=== PATIENT | male | born 1950 | race African-American/Black ===

== ENCOUNTER 2017-01-13 07:46 | Day surgery (SDC) | payer OTHER ==
[2017-01-11 15:14] LABS: BASOPHILS 0.3 %; BASOPHILS ABSOLUTE 0.01 10/3/uL (0.0-0.16); EOSINOPHILS 2.9 %; HEMOGLOBIN 14.3 g/dL (13.6-17.8); IMMATURE GRANULOCYTES 0.3 %; IMMATURE GRANULOCYTES ABSOLUTE 0.01 10/3/uL (0.0-0.11); LYMPHOCYTES 55.2 %; LYMPHOCYTES ABSOLUTE 1.91 10/3/uL (0.67-4.30); MEAN CORPUS HGB CONC 32.5 g/dL (32.0-36.0); MEAN CORPUSCULAR HEMOGLOB 23.4 pg (26.0-34.0); MEAN PLATELET VOLUME 9.6 fL (9.2-13.0); MONOCYTES ABSOLUTE 0.45 10/3/uL (0.21-1.20); NEUTROPHILS 28.3 %; NEUTROPHILS ABSOLUTE 0.98 10/3/uL (2.02-8.40); PLATELET COUNT 262 10/3/uL (150-400); RBC DISTRIBUTION WIDTH 14.3 % (12.0-16.0); RED CELL COUNT 6.11 10/6/uL (4.7-6.1); WHITE BLOOD CELLS 3.5 10/3/uL (4.5-10.5)
[2017-01-11 15:29] LABS: MANUAL DIFF NO %
[2017-01-11 16:01] LABS: BUN (BLOOD UREA NITROGEN) 14 MG/DL (6-23); CALCIUM, SERUM 8.5 MG/DL (8.5-10.4); CHLORIDE, SERUM 105 MMOL/L (96-112); CO2 (CARBON DIOXIDE) 28 MMOL/L (24-34); CREATININE 1.13 MG/DL (0.70-1.30); GFR AFRICAN AMERICAN 79 ML/MIN (>=60); GFR NON AFRICAN AMERICAN 68 ML/MIN (>=60); GLUCOSE, SERUM 102 MG/DL (60-99); POTASSIUM, SERUM 3.9 MMOL/L (3.5-5.3); SODIUM, SERUM 142 MMOL/L (135-148)
[2017-01-11 16:08] LABS: PLATELET ESTIMATE ADQ (ADEQUATE); RBC MORPHOLOGY NORM (NORMAL)
--- NOTE | ~2017-01-13 | OP ---
Record Of Operation [facility] [address] [place]. [address] NAME: JAIMIE DELGADO : 54 STATUS : [place] [facility] [place] PAT#: [id number] AGE: 66 ADM/REG DATE : 01/13/17 MR#: [id number] REPORT SERV DATE: 01/13/17 DICTATED BY: HEVER SLOAN DATE: 01/13/17 REPORT STATUS : Draft TRANSCRIBED BY: MODL DATE: 01/13/17 DATE OF PROCEDURE: 01/13/2017 PREOPERATIVE DIAGNOSIS: Elevated PSA. POSTOPERATIVE DIAGNOSIS: Elevated PSA. OPERATIVE PROCEDURE: Transrectal ultrasound-guided needle biopsy of the prostate. ANESTHESIA: IV sedation (MAC)-monitored anesthesia care. ESTIMATED BLOOD LOSS: 10 mL. SPECIMENS: Prostate x18 (3 right base, 3 right apex, 3 right mid gland, 3 left base, 3 left apex, 3 left mid gland). IMMEDIATE POSTOP: Satisfactory. COMPLICATIONS: None. DESCRIPTION OF PROCEDURE: The patient was brought into the cysto suite, placed in lateral decubitus position. He was then given intravenous sedation/monitored anesthesia care by the Anesthesia Department. Transrectal ultrasound probe containing needle biopsy guide was then passed by the gi technician. Gland was investigated in both transverse and longitudinal planes. There were no suspicious areas noted. The gland was measured with a length of 7.53 cm, height of 7.18 cm, width 6.58 cm for a volume of 186.26 mL. Then using a disposable biopsy gun under ultrasound guidance, biopsies were obtained throughout the gland in the pattern dictated above. The patient tolerated the procedure well. At the close of the procedure, there was no excess bleeding per rectum, and an absorbable Gelfoam packing was passed per rectum. The patient tolerated the procedure well and at this point was awakened and sent to recovery to phase 2 recovery in satisfactory condition. /CARON Hever Sloan M.D. / [id number] CC: Remberto De La Cruz M.D.
[~2017-01-13 07:46] MED LIST: ADVIL PO; CENTRUM PO; CIALIS5 MG PO; CIP5 PO; SEPTRA DS1 TAB PO; SUPER BETA PROSTATE PO; SYN.15 PO; T PO; TWYNSTA PO
[2017-01-13 10:07] LABS: ALBUMIN 3.9 G/DL (3.5-5.0); ALKALINE PHOSPHATASE 90 U/L (45-117); SGOT(AST) 17 U/L (5-40); SGPT(ALT) 25 U/L (5-65); TOTAL BILIRUBIN 0.3 MG/DL (0-1.2)
[2017-01-13 10:19] LABS: A/G RATIO 1.4 (0.7-1.9); GLOBULIN 2.8 G/DL (2.5-4.1); TOTAL PROTEIN 6.7 G/DL (6.0-8.5)
[2017-03-16] MEDS ORDERED: TWYNSTA PO (13:31)
[2017-03-16] MEDS ORDERED: CARDCD240 PO (14:08)
[2017-03-16] MEDS ORDERED: TOPXL100 PO (14:08)
[2017-03-16] MEDS ORDERED: XARELTO15 MG PO (14:09)
[2017-03-18] MEDS ORDERED: BETAPACE80 PO (14:18)
== END 2017-01-13 12:37 | disposition home or self-care (01) ==
LOC: SDC 07:46
PROVIDERS: Urology
PROC: 0VB04ZX Excision of Prostate, Percutaneous Endoscopic Approach, Diagnostic (ICD-10-PCS; principal; 2017-01-13 09:30)
DX: R97.20 Elevated prostate specific antigen [PSA] (principal); I10 Essential (primary) hypertension; K21.9 Gastro-esophageal reflux disease without esophagitis; E05.00 Thyrotoxicosis with diffuse goiter without thyrotoxic crisis or storm; Z92.3 Personal history of irradiation; Z79.899 Other long term (current) drug therapy
CPT/HCPCS: 71020; 76872; 76942; 80048; 80053; 85025; 88305; 93005; A9270-GY; J2250; J2405; J3010

== ENCOUNTER 2017-02-21 17:22 | Emergency (ER) | payer OTHER ==
[2017-02-21 18:10] LABS: BASOPHILS 0.2 %; BASOPHILS ABSOLUTE 0.01 10/3/uL (0.0-0.16); EOSINOPHILS 0.4 %; EOSINOPHILS ABSOLUTE 0.02 10/3/uL (0.0-0.53); ER CBC TAT 0 Hrs 07 Mins; HEMATOCRIT 48.2 % (40.0-51.0); HEMOGLOBIN 16.2 g/dL (13.6-17.8); IMMATURE GRANULOCYTES 0.4 %; IMMATURE GRANULOCYTES ABSOLUTE 0.02 10/3/uL (0.0-0.11); LYMPHOCYTES 18.9 %; LYMPHOCYTES ABSOLUTE 0.95 10/3/uL (0.67-4.30); MANUAL DIFF NO %; MEAN CORPUS HGB CONC 33.6 g/dL (32.0-36.0); MEAN CORPUSCULAR HEMOGLOB 24.3 pg (26.0-34.0); MEAN CORPUSCULAR VOLUME 72.4 fL (80-100); MEAN PLATELET VOLUME 9.4 fL (9.2-13.0); NEUTROPHILS 74.1 %; NEUTROPHILS ABSOLUTE 3.73 10/3/uL (2.02-8.40); PLATELET COUNT 248 10/3/uL (150-400); RBC DISTRIBUTION WIDTH 14.5 % (12.0-16.0); RED CELL COUNT 6.66 10/6/uL (4.7-6.1)
[2017-02-21 18:21] LABS: INTERNATIONAL NORMAL RATI 1.4 UNITS (-); PARTIAL THROMBO TIME 37.4 SEC (22.5-37.2)
[2017-02-21 18:29] LABS: BUN (BLOOD UREA NITROGEN) 17 MG/DL (6-23); CALCIUM, SERUM 8.4 MG/DL (8.5-10.4); CHEST PAIN PROFILE TAT 0 Hrs 26 Mins; CHLORIDE, SERUM 104 MMOL/L (96-112); CO2 (CARBON DIOXIDE) 24 MMOL/L (24-34); CREATININE 1.26 MG/DL (0.70-1.30); GFR AFRICAN AMERICAN 69 ML/MIN (>=60); GFR NON AFRICAN AMERICAN 60 ML/MIN (>=60); GLUCOSE, SERUM 107 MG/DL (60-99); POTASSIUM, SERUM 3.7 MMOL/L (3.5-5.3); SODIUM, SERUM 139 MMOL/L (135-148); TROPONIN I <0.02 NG/ML (<0.05)
[2017-02-21 18:35] LABS: PLATELET ESTIMATE ADQ (ADEQUATE)
[2017-03-16] MEDS ORDERED: TWYNSTA PO (13:31)
[2017-03-16] MEDS ORDERED: TOPXL100 PO (14:08)
[2017-03-16] MEDS ORDERED: CARDCD240 PO (14:08)
[2017-03-16] MEDS ORDERED: XARELTO15 MG PO (14:09)
[2017-03-18] MEDS ORDERED: BETAPACE80 PO (14:18)
== END 2017-02-21 20:05 | disposition left against medical advice (07) ==
LOC: ER 17:22
PROVIDERS: Emergency Medicine
DX: Z53.21 Procedure and treatment not carried out due to patient leaving prior to being seen by health care provider (principal)
CPT/HCPCS: 80048; 83735; 84484; 85025; 85610; 85730; 93005

== ENCOUNTER 2017-02-23 07:43 | Emergency (ER) | payer OTHER ==
[2017-02-23 06:53] LABS: BASOPHILS 0.2 %; BASOPHILS ABSOLUTE 0.01 10/3/uL (0.0-0.16); EOSINOPHILS 2.2 %; ER CBC TAT 0 Hrs 03 Mins; HEMATOCRIT 46.2 % (40.0-51.0); HEMOGLOBIN 15.6 g/dL (13.6-17.8); IMMATURE GRANULOCYTES 0.7 %; IMMATURE GRANULOCYTES ABSOLUTE 0.03 10/3/uL (0.0-0.11); LYMPHOCYTES ABSOLUTE 1.52 10/3/uL (0.67-4.30); MEAN CORPUS HGB CONC 33.8 g/dL (32.0-36.0); MEAN CORPUSCULAR HEMOGLOB 24.3 pg (26.0-34.0); MEAN CORPUSCULAR VOLUME 72.1 fL (80-100); MEAN PLATELET VOLUME 8.8 fL (9.2-13.0); MONOCYTES 12.6 %; MONOCYTES ABSOLUTE 0.58 10/3/uL (0.21-1.20); NEUTROPHILS 51.3 %; NEUTROPHILS ABSOLUTE 2.37 10/3/uL (2.02-8.40); PLATELET COUNT 260 10/3/uL (150-400); RBC DISTRIBUTION WIDTH 14.4 % (12.0-16.0); RED CELL COUNT 6.41 10/6/uL (4.7-6.1); WHITE BLOOD CELLS 4.6 10/3/uL (4.5-10.5)
[2017-02-23 06:54] LABS: MANUAL DIFF NO %
[2017-02-23 07:01] LABS: INTERNATIONAL NORMAL RATI 1.2 UNITS (-); PARTIAL THROMBO TIME 33.7 SEC (22.5-37.2); PROTIME (NOT ORD) 15.1 SEC (12.0-14.5)
[2017-02-23 07:15] LABS: BUN (BLOOD UREA NITROGEN) 20 MG/DL (6-23); CALCIUM, SERUM 8.5 MG/DL (8.5-10.4); CHEST PAIN PROFILE TAT 0 Hrs 25 Mins; CHLORIDE, SERUM 104 MMOL/L (96-112); CO2 (CARBON DIOXIDE) 26 MMOL/L (24-34); CREATININE 1.53 MG/DL (0.70-1.30); GFR AFRICAN AMERICAN 55 ML/MIN (>=60); GFR NON AFRICAN AMERICAN 47 ML/MIN (>=60); GLUCOSE, SERUM 115 MG/DL (60-99); POTASSIUM, SERUM 3.7 MMOL/L (3.5-5.3); SODIUM, SERUM 139 MMOL/L (135-148); TROPONIN I <0.02 NG/ML (<0.05)
[2017-02-23 07:24] LABS: PLATELET ESTIMATE ADQ (ADEQUATE)
[2017-02-23 09:41] LABS: FREE T4 1.45 NG/DL (0.76-1.46); T3 UPTAKE 38 % (30-45); T4 (THYROXINE) TOTAL 10.8 MCG/DL (4.5-12.0)
[2017-03-16] MEDS ORDERED: TWYNSTA PO (13:31)
[2017-03-16] MEDS ORDERED: CARDCD240 PO (14:08)
[2017-03-16] MEDS ORDERED: TOPXL100 PO (14:08)
[2017-03-16] MEDS ORDERED: XARELTO15 MG PO (14:09)
[2017-03-18] MEDS ORDERED: BETAPACE80 PO (14:18)
== END 2017-02-23 10:20 | disposition home or self-care (01) ==
LOC: ER 07:43
PROVIDERS: Specialist
DX: I48.91 Unspecified atrial fibrillation (principal); I10 Essential (primary) hypertension; Z79.899 Other long term (current) drug therapy
CPT/HCPCS: 71010; 80048; 83735; 83880; 84436; 84439; 84443; 84479; 84481; 84484; 85025; 85610; 85730; 93005; 96374; 99285